=== PATIENT | female | born 1960 | race Caucasian/White ===

== ENCOUNTER 2017-03-12 08:26 | Outpatient (CLI) | payer BC ==
--- NOTE | 2017-03-12 20:04 | ULT ---
THYROID ULTRASOUND 03/12/17 Ultrasonography of the thyroid gland was performed for evaluation of a thyroid nodule. No prior thyro id ultrasound was available to compare with. The right lobe is large, measuring 5.6 x 2.9 x 2.0 cm. Internally it has a somewhat isoechoic mass oc cupying the lower half of the lobe which measures 4.2 x 2.3 x 1.7 cm. The margins are not extremely d iscrete. There may be some calcifications internally. All of these findings raise concern that furthe r workup is definitely needed to exclude malignancy. The left lobe is upper normal in size measuring 4.1 x 1.2 x 1.3 cm. There is a 7 mm hypoechoic fairly well defined mass in the middle third of this lobe with no blood flow within it. IMPRESSION: 1. 4.2 cm solid mass occupying much of the lower half of the right lobe. This mass has blood sherice w, somewhat poorly defined margins, and possibly calcifications. All of these findings raise concern for malignancy. A biopsy is needed. 2. 7 mm reasonably well defined hypoechoic mass in the left lobe, middle third. While benignity is not proven by an ultrasound, it is much less concerning than the right lobe mass. Code T POS: HOME
== END 2017-03-12 08:27 | disposition home or self-care (01) ==
LOC: BURULT 08:26
PROVIDERS: ATTEND Family Medicine
DX: E04.1 Nontoxic single thyroid nodule (principal); E07.89 Other specified disorders of thyroid
CPT/HCPCS: 76536

== ENCOUNTER 2020-06-10 23:41 | Emergency (ER) | payer BC ==
[2020-06-11 00:10] LABS: Bilirubin Negative (Negative); Blood, Urine Large (Negative); Clarity Cloudy (Clear); Glucose, Urine (Dipstick) 500 mg/dL (Negative); Ketone, Urine Trace mg/dL (Negative); Leukocyte Small (Negative); Nitrite Negative (Negative); Protein, Urine (Dipstick) 100 mg/dL (Neg-Trace); Specific Gravity, Urine 1.015 (1.005-1.030)
[2020-06-11 00:20] LABS: WBC/HPF 21-50 HPF (0-3)
[2020-06-11 00:21] LABS: Bacteria/HPF 1+ HPF (None Seen); Squamous Epithelial None Seen HPF (0-3); Trichomonas/HPF None Seen HPF (None Seen); Yeast-Budding None Seen HPF (None Seen)
[2020-06-11] MEDS ORDERED: Ibuprofen 800 MG TAB ONE (00:45)
[2020-06-11] MEDS ORDERED: Ciprofloxacin 500 MG TAB ONE (00:45)
== END 2020-06-11 00:47 | disposition home or self-care (01) ==
LOC: BURERS 23:41
DX: N30.00 Acute cystitis without hematuria (principal); E11.65 Type 2 diabetes mellitus with hyperglycemia; E78.5 Hyperlipidemia, unspecified; E78.00 Pure hypercholesterolemia, unspecified; I10 Essential (primary) hypertension; Z79.4 Long term (current) use of insulin; Z79.899 Other long term (current) drug therapy; Z79.82 Long term (current) use of aspirin
CPT/HCPCS: 36416; 81003; 81015; 99284